=== PATIENT | male | born 1990 | race Caucasian/White ===

== ENCOUNTER 2023-02-20 15:50 | Emergency (ER) | payer MEDICAID, SELFPAY ==
[2023-02-20 15:56] VITALS: BP 134/85; PULSE 111; RESP 16; TEMP 37.4; O2SAT 100; BMI 20.6
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
[2023-02-20 17:41] VITALS: BP 126/100; PULSE 83; O2SAT 97
[2023-02-20 18:38] VITALS: BP 131/99; PULSE 99; RESP 18; O2SAT 95
[2023-02-20 20:12] VITALS: RESP 16
[2023-02-20] MEDS: morphine 4 mg/mL SDV 1 mL IVP (20:12)
== END 2023-02-20 20:50 | disposition left against medical advice (07) ==
PROVIDERS: Emergency Provider Emergency Medicine
DX: S32.445A Nondisplaced fracture of posterior column [ilioischial] of left acetabulum, initial encounter for closed fracture (principal); S00.81XA Abrasion of other part of head, initial encounter; Y35.813A Legal intervention involving manhandling, suspect injured, initial encounter
CPT/HCPCS: 70450; 70486; 73502; 73700; 96374; 99285; E0114; J2270

== ENCOUNTER 2023-05-15 13:58 | Inpatient (IN) | payer MEDICAID, SELFPAY ==
[2023-05-15 14:02] VITALS: BP 172/90; PULSE 116; RESP 16; TEMP 37; O2SAT 99; BMI 20.9
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
[2023-05-15] MEDS: OLANZapine 10 mg VIAL IM (14:49)
[2023-05-15] MEDS: water for injection-sterile 10 ML 2.1 ML (14:52)
[2023-05-15 15:41] LABS: Basophils % 0.4 %; Eosinophils % 0.3 %; Hematocrit 46.3 % (37-53); Lymphocytes # 2.2 10^3/uL (0.8-4.8); Lymphocytes % 23.5 %; Mean Corpuscular HGB Conc 33.9 g/dL (30-55); Mean Corpuscular Hemoglobin 30.2 pg (27-33); Mean Platelet Volume 10.5 fL (7.4-10.4); Monocytes # 0.8 10^3/uL (0.2-0.9); Monocytes % 8.9 %; Neutrophils # 6.14 10^3/uL (1.8-7.7); Neutrophils % 65.2 %; Nucleated Red Blood Cells % 0 %; Platelet Count 256 10^3/cmm (157-399); Red Cell Distribution Width 12.1 % (12.1-15.1); White Blood Count 9.43 10^3/uL (3.29-11.43)
[2023-05-15 16:07] LABS: Alanine Aminotransferase 22 U/L (0-41); Albumin Level 4.6 g/dL (3.5-5.2); Alkaline Phosphatase 93 U/L (40-130); Aspartate Amino Transferase 22 U/L (0-40); Blood Urea Nitrogen 16 mg/dL (6-20); Calcium 10.1 mg/dL (8.5-10.5); Carbon Dioxide 21 mmol/L (22-29); Chloride 100 mmol/L (98-107); Globulin 3.2 g/dL (1.3-4.6); Glomerular Filtration Rate 77.6 mL/min (90-130); Glucose 97 mg/dL (65-115); Osmolality Calculated 287 mOsm/kg (285-295); Sodium 138 mmol/L (136-145); Total Bilirubin 0.5 mg/dL (0.15-1.2); Total Protein 7.8 g/dL (6.6-8.7)
[2023-05-15 16:10] LABS: Acetaminophen < 5.0 ug/mL (10-30); Alcohol Level < 10 mg/dL (0-10); Salicylate < 0.3 mg/dL (3-10)
--- NOTE | 2023-05-15 16:50 | PC.NURSE ---
96 hr rights reviewed with patient with assistance of [facility] security program manager Navneet @[phone]. All education reviewed. No questions or verbalized at this time. Patient copy left @bedside.
--- NOTE | 2023-05-15 17:55 | PC.NURSE ---
When patient arrived on unit, patient followed ER staff into nurses station. This nurse lead patient out into giang. Patient then sat in wheelchair with eyes closed and head tilted back. It took multiple attempts to persuade patient to transfer from wheelchair to bench. VS were quickly obtained. VS were WNLs.Then patient was up quickly, taking large, unsteady steps. Patient went to the bathroom, then went to the barrels and climbed on top of a barrel before this nurse could stop him. This nurse helped him down. This nurse and TEAM PSYCHOLOGIST helped patient to room. Patient kept trying to enter the rooms of others during the walk. Patient had to be assisted by this nurse and TEAM PSYCHOLOGIST to switch out into green scrubs. When asked if he knew where he was patient stated, [facility] . This nurse informed patient that he is at the hospital in [place]. Patient eyes remained closed and he didn't respond. Staff removed two gauges, one from each ear. No areas that need to be addressed on skin. Patient was covered with a blanket and patient quickly went to sleep.
[2023-05-15 20:51] VITALS: RESP 16
--- NOTE | 2023-05-15 20:51 | PC.NURSE ---
Attempted to obtain patients vitals. Patient would not wake up to obtain. RR documented
[2023-05-15] MEDS: hyDROXYzine 25 mg Capsule 50 MG PO (21:52)
[2023-05-15 22:04] LABS: Amphetamines Screen Urine Positive (Negative); Barbiturates Screen Urine Negative (Negative); Benzodiazepines Screen Urine Negative (Negative); Cocaine Screen Urine Negative (Negative); Opiate Screen Urine Negative (Negative); PCP Screen Urine Negative (Negative); THC Screen Urine Negative (Negative)
[2023-05-15] MEDS: acetaminophen 325 mg Tablet 650 MG PO (23:22)
[2023-05-16 06:00] VITALS: BP 126/68; PULSE 115; RESP 20; TEMP 36.6; O2SAT 95
[2023-05-16] MEDS: hyDROXYzine 25 mg Capsule 50 MG PO (08:42)
[2023-05-16] MEDS: nicotine 2 mg Gum BUCCAL ×2 (08:43→11:46)
[2023-05-16] MEDS: OLANZapine 5 mg ODT PO (10:30)
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
[2023-05-16 14:00] VITALS: BP 121/69; PULSE 72; RESP 16; TEMP 36.6; O2SAT 95
[2023-05-16] MEDS: paliperidone ER 3 mg Tablet PO (20:33)
[2023-05-16] MEDS: carBAMazepine 200 mg Tablet PO (20:33)
[2023-05-16 20:38] VITALS: BP 111/73; PULSE 70; RESP 18; TEMP 37; O2SAT 97
[2023-05-17] MEDS: hyDROXYzine 25 mg Capsule 50 MG PO ×3 (07:17→20:50)
[2023-05-17] MEDS: nicotine 2 mg Gum BUCCAL (07:54)
--- NOTE | 2023-05-17 08:41 | P.NPUPN_ITS ---
Subjective NPU 2 Subjective: Patient presented today reporting that he is tolerating the Invega fine. He reports that he has been a little tired today but that is been okay. He denied any significant side effects. He reports that he has been talking to the social work team about the possibility of rehab but seem to be somewhat ambivalent. We discussed continuing the medication as it stands and looking to direct him in a way that is supportive of his recovery. Mental Status Exam 2 MSE Comments: This is an underweight/diminutive white male in hospital scrubs with limited grooming and eye contact.? No abnormal movements except for mild psychomotor retardation.? Cooperative with exam in mild distress.? Speech was slightly decreased rate and volume.? Mood described as okay but stressed and having panic attacks, affect congruent and odd.? Thought process organized.? Thought content: Patient denies suicidal or homicidal ideation, there were no delusions reported or noted, he endorsed auditory and visual hallucinations.? Attention and concentration were intact and memory appeared mostly reliable but none were formally tested.? He is alert and oriented x3.? Insight and judgment appear limited and impulse control is impaired. Vitals/I&O/Wt Last Vital Signs Temp 98.6 F 05/16/23 20:38 Pulse 70 05/16/23 20:38 Resp 18 05/16/23 20:38 BP 111/73 05/16/23 20:38 Pulse Ox 97 05/16/23 20:38 O2 Del Method Room Air 05/16/23 20:38 Data NPU 05/15/23 15:33 05/15/23 15:33 A&P Assessment and plan (1) Psychosis: Qualifiers: Psychosis type: unspecified psychosis type Qualified Code(s): F29 - Unspecified psychosis not due to a substance or known physiological condition (2) Involuntary commitment: (3) Substance abuse: (4) Methamphetamine use disorder, severe: Plan This is a 32-year-old white male with reported sleep deprivation, hallucinations, and anxiety. The hallucinations have been ongoing since the patient quit alcohol in 2019. The patient also reports a history of drug use, including alcohol, cigarettes, and occasional use of cocaine, methamphetamine, and opiates and has a family history of mental health issues and addiction with UDS positive for amphetamines. 1.? Continue current medications. Started Invega 3 mg 05/16/2023 and then 6 mg daily today. 2.? Continue every 15 minute checks for safety. 3.? Encourage individual, group and milieu therapies. 4. Encourage sober living treatment after discharge at the highest level of care to which he is willing to commit. Involuntary Hold Information 2 96 Hour Hold: 96 Hour Involuntary Admission: Yes 96 Hour Hold Ending Date: 05/19/23 96 Hour Hold Ending Time: 14:14 Attestations NPU 2 Medical Necessity Statement*: Inpatient hospitalization is medically necessary and the clinically appropriate intervention at this time. We will monitor medications and make changes as indicated. Likely length of stay 2-4 days. Coding Level of Care Code Acute Code for g Fwd Diagnoses Psychosis F29 Psychosis type: unspecified psychosis type Involuntary commitment Z04.6 Substance abuse F19.10 Methamphetamine use disorder, severe F15.20
[2023-05-17] MEDS: paliperidone ER 6 mg Tablet PO (08:43)
[2023-05-17 14:00] VITALS: BP 105/61; PULSE 82; RESP 12; O2SAT 96
[2023-05-17] MEDS: trazodone 50 mg Tablet PO (20:50)
[2023-05-17 21:11] VITALS: RESP 18
--- NOTE | 2023-05-17 21:12 | PC.NURSE ---
Attempted to obtain patients vitals. Patient was sleeping and would not comply, RR documented
[2023-05-18] MEDS: trazodone 50 mg Tablet PO ×2 (01:28→20:29)
[2023-05-18] MEDS: OLANZapine 5 mg ODT PO ×3 (02:28→17:42)
[2023-05-18 06:00] VITALS: BP 113/76; PULSE 93; RESP 18; TEMP 36.9; O2SAT 98
[2023-05-18] MEDS: hyDROXYzine 25 mg Capsule 50 MG PO ×2 (07:52→15:37)
[2023-05-18] MEDS: paliperidone ER 6 mg Tablet PO (07:52)
--- NOTE | 2023-05-18 08:46 | P.NPUPN_ITS ---
Subjective NPU 2 Subjective: Patient presented today continuing to spend a lot of time in his room but reporting that he had been struggling with sleep and we discussed it being consistent with withdrawal from stimulants/methamphetamine. He is working with the social work team for possible sober living options. He is reporting at this point that he is committed to some kind of rehab or active treatment. He denied any side effects to the medication. Mental Status Exam 2 MSE Comments: This is an underweight/diminutive white male in hospital scrubs with limited grooming and eye contact.? No abnormal movements except for mild psychomotor retardation.? Cooperative with exam in mild distress.? Speech was slightly decreased rate and volume.? Mood described as okay but stressed and having panic attacks, affect congruent and odd.? Thought process organized.? Thought content: Patient denies suicidal or homicidal ideation, there were no delusions reported or noted, he endorsed auditory and visual hallucinations.? Attention and concentration were intact and memory appeared mostly reliable but none were formally tested.? He is alert and oriented x3.? Insight and judgment appear limited and impulse control is impaired. Vitals/I&O/Wt Last Vital Signs Temp 98.4 F 05/18/23 06:00 Pulse 93 05/18/23 06:00 Resp 18 05/18/23 06:00 BP 113/76 05/18/23 06:00 Pulse Ox 98 05/18/23 06:00 O2 Del Method Room Air 05/18/23 06:00 Data NPU 05/15/23 15:33 05/15/23 15:33 A&P Assessment and plan (1) Psychosis: Qualifiers: Psychosis type: unspecified psychosis type Qualified Code(s): F29 - Unspecified psychosis not due to a substance or known physiological condition (2) Involuntary commitment: (3) Substance abuse: (4) Methamphetamine use disorder, severe: Plan This is a 32-year-old white male with reported sleep deprivation, hallucinations, and anxiety. The hallucinations have been ongoing since the patient quit alcohol in 2019. The patient also reports a history of drug use, including alcohol, cigarettes, and occasional use of cocaine, methamphetamine, and opiates and has a family history of mental health issues and addiction with UDS positive for amphetamines. 1.? Continue current medications. Started Invega 3 mg 05/16/2023 and then 6 mg daily thereafter. 2.? Continue every 15 minute checks for safety. 3.? Encourage individual, group and milieu therapies. 4. Encourage sober living treatment after discharge at the highest level of care to which he is willing to commit. Involuntary Hold Information 2 96 Hour Hold: 96 Hour Involuntary Admission: Yes 96 Hour Hold Ending Date: 05/19/23 96 Hour Hold Ending Time: 14:14 Attestations NPU 2 Medical Necessity Statement*: Inpatient hospitalization is medically necessary and the clinically appropriate intervention at this time. We will monitor medications and make changes as indicated. Likely length of stay 2-4 days. Coding Level of Care Code Acute Code for Chg Fwd Diagnoses Psychosis F29 Psychosis type: unspecified psychosis type Involuntary commitment Z04.6 Substance abuse F19.10 Methamphetamine use disorder, severe F15.20
[2023-05-18] MEDS: nicotine 2 mg Gum BUCCAL (10:19)
[2023-05-18 14:00] VITALS: BP 116/76; PULSE 100; RESP 20; TEMP 36.9; O2SAT 97
--- NOTE | 2023-05-18 17:44 | PC.NURSE ---
pt up at nurses station requesting medication for restless leg syndrome, when asked by this nurse if pt suffered from this syndrome at home pt stated only when I am not taking my medication. pt stated he has not been prescribed any of his medication since moving to [place] from [place] 6 months ago. This nurse asked what medication he was taking at home that he is no longer taking, pt stated suboxone. pt then stated when asked where he recieved his prescription from because it is not listed as a home medication in his chart. pt stated from friends and family where ever I can get the medication.
[2023-05-18 21:12] VITALS: BP 120/71
[2023-05-18] MEDS: cloNIDine 0.1 mg Tablet PO (21:12)
[2023-05-18 21:29] VITALS: BP 120/71; PULSE 109; RESP 20; TEMP 36.5; O2SAT 98
[2023-05-19] MEDS: OLANZapine 5 mg ODT PO ×2 (04:05→10:13)
[2023-05-19] MEDS: benztropine 1 mg Tablet PO (05:41)
[2023-05-19] MEDS: nicotine 2 mg Gum BUCCAL (05:43)
[2023-05-19 06:00] VITALS: BP 101/67; PULSE 93; RESP 16; TEMP 36.8; O2SAT 97
[2023-05-19] MEDS: paliperidone ER 6 mg Tablet PO (08:59)
--- NOTE | 2023-05-19 10:31 | P.NPUDS_ITS ---
Diagnoses at Discharge Discharge Diagnosis (1) Psychosis: Status: Acute Qualifiers: Psychosis type: unspecified psychosis type Qualified Code(s): F29 - Unspecified psychosis not due to a substance or known physiological condition (2) Involuntary commitment: Status: Acute (3) Substance abuse: Status: Acute (4) Methamphetamine use disorder, severe: Status: Acute Reason for Visit Reason for Visit: MHE, Meds Brief History: History of Present Illness Chema Yeung is a 32 year old male who presented to the emergency department with the following report: Chief Complaint: Psychiatric Symptoms Stated Complaint: MHE, Meds Time Seen by Provider: 05/15/23 14:05 Source: patient and family Mode of arrival: ambulatory Limitations: no limitations History of Present Illness: Patient is a 32-year-old male who presents to ED today along with his mother and sister reporting that he needs a refill on his risperidone. Patient tells me he takes his medication for schizophrenia. He does tell me he has been hearing voices and seeing things. Later mother and sister pulled me aside and tell me that patient has stated that people are going through his eyes and into his head and that they time travel. He wants to patent his invention on time travel because other's are already profitting from it. He keeps thinking that somebody is stabbing him in his eyes. He thinks that demons are in the house and is making mother/sister clean the rooms to try to get them out. Sister states that he feels Le Haresh (cleaning staff supervisor) is stabbing him. He later tells me that they text [id number]. Affidavit states that he was hearing people get shot at his residence and making the mother and sister go search the property. Patient tells me he is not suicidal or homicidal. MD complaint: other (psychosis/delusions) Onset (ago): day(s) Duration: constant History of same: Yes Relieving factors: medication Context: not taking psychiatric medications (ran out of his risperidone) Associated psychiatric symptoms: auditory hallucinations, visual hallucinations and delusions Associated symptoms: Reports auditory hallucinations, visual hallucinations and delusions; Deny homicidal ideation or suicidal ideation Treatments prior to arrival: none He was admitted to the neuropsychiatric unit for definitive treatment of those issues. CHIEF COMPLAINT Sleep deprivation, hallucinations, anxiety HISTORY OF THE PRESENT COMPLAINT The patient presented with sleep deprivation, which has been an ongoing issue since 2019. The patient reported experiencing hallucinations, which he believes started after he quit alcohol and experienced delirium tremens (DT's) around four to five years ago. The hallucinations are both auditory and visual and tend to occur three to four days after he stops drinking. The hallucinations are influenced by his immediate surroundings and can be intense, to the point where he sometimes cannot distinguish them from reality. The patient also reported experiencing anxiety, particularly worrying about life and financial matters. However, he denied experiencing paranoia or obsessive-compulsive disorder (OCD) symptoms. The patient has a history of substance use, including alcohol, cocaine, methamphetamine, and opiates, which he uses socially and not daily. He reported that he had been drinking prior to the current episode of sleep deprivation and hallucinations but had stopped. He also mentioned that he does not remember his actions when he drinks. In terms of previous treatments, the patient reported that antipsychotic medications, specifically Seroquel and Risperdal, have helped with his hallucinations in the past. He expressed willingness to try a new medication, Invega, which is similar to Risperdal, to help manage his symptoms. The patient also reported a traumatic event in his past, specifically the murder of his stepfather. He is currently homeless and has been for a couple of months. He has been to penitentiary four times, with the longest stay being one year. He described his mood as stressed and experiencing panic attacks but denied any current thoughts of self-harm or harm to others. MENTAL HEALTH HISTORY No previous psychiatric hospitalization, previous therapy in [place], history of medication use, hallucinations since quitting alcohol in 2019, history of sleep deprivation SOCIAL HISTORY Smokes a pack of cigarettes per week, consumes alcohol once or twice a week, occasional use of cocaine, methamphetamine, and opiates, family history of mental health issues and addiction on both sides, family history of suicide attempts and completion, born premature, lived with various family members during childhood, stepfather was murdered, homeless for a few months, been to penitentiary four times Hospital Course Hospital Course He slowly acclimated to the individual, group therapies provided. He presented with significant addiction issues and withdrawal from substances including methamphetamine. He was open to a trial of Invega which was titrated to 6 mg p.o. daily for psychosis. He was initially ambivalent but became increasingly more open to sober living treatment. He worked with social work team for outpatient resources discharge/aftercare plans including addiction treatment. He had significant improvement during the hospitalization and was able to contract for safety outside of the hospital prior to discharge. During the hospitalization, patient had routine laboratory studies which were within normal limits except for few outliers. Additionally there was a general medical e valuation which was also within normal limits and revealed no new acute processes. At the time of discharge, lethality was denied and psychosis was resolving. Mood and anxiety were well managed. Patient endorsed a plan to avoid all drugs of abuse and follow-up with the aftercare recommendations of the treatment team. Patient was evaluated and deemed to be absent credible lethality, and had ach ieved the maximum benefit from an inpatient hospitalization, so was discharged. Involuntary Hold Information 96 Hour Hold: 96 Hour Involuntary Admission: Yes 96 Hour Hold Ending Date: 05/19/23 96 Hour Hold Ending Time: 14:14 Mental Status Exam MSE Comments: This is an underweight/diminutive white male in hospital scrubs with limited grooming and eye contact.? No abnormal movements except for mild psychomotor retardation.? Cooperative with exam in mild distress.? Speech was slightly decreased rate and volume.? Mood described as better, affect congruent and odd.? Thought process organized.? Thought content: Patient denies suicidal or homicidal ideation, there were no delusions reported or noted, he endorsed auditory and visual hallucinations.? Attention and concentration were intact and memory appeared mostly reliable but none were formally tested.? He is alert and oriented x3.? Insight and judgment appear limited and impulse control is impa ired. Discharge Data Studies Completed and Pending: Laboratory Results WBC 9.43 10^3/uL (3.2 9-11.43) 05/15/23 15:33 RBC 5.20 10^6/uL (3.8 5-5.65) 05/15/23 15:33 Hgb 15.70 g/dL (11.27 -16.99) 05/15/23 15:33 Hct 46.3 % (37-53) 05/15/23 15:33 MCV 89.0 fl (82-101) 05/15/23 15:33 MCH 30.2 pg (27-33) 05/15/23 15:33 MCHC 33.9 g/dL (30-55) 05/15/23 15:33 RDW 12.1 % (12.1-15.1 ) 05/15/23 15:33 Plt Count 256 10^3/cmm (157 -399) 05/15/23 15: MPV 10.5 fL (7.4-10.4 ) H 05/15/23 15: Neut % (Auto) 65.2 % 05/15/23 15: Lymph % (Auto) 23.5 % 05/15/23 15: Stokes % (Auto) 8.9 % 05/15/23 15: Eos % (Auto) 0.3 % 05/15/23 15:33 Baso % (Auto) 0.4 % 05/15/23 15: Neut # (Auto) 6.14 10^3/uL (1.8 -7.7) 05/15/23 15: Lymph # (Auto) 2.2 10^3/uL (0.8- 4.8) 05/15/23 15: Stokes # (Auto) 0.8 10^3/uL (0.2- 0.9) 05/15/23 15: Eos # (Auto) 0.0 10^3/uL (0.0- 0.8) 05/15/23 15: Baso # (Auto) 0.0 10^3/uL (0.0- 0.1) 05/15/23 15: Nucleated RBC % (a uto) 0 % 05/15/23 15: Nucleated RBCs # 0.0 /100WBC 05/15/23 15: Sodium 138 mmol/L (136-1 45) 05/15/23 15: Potassium 4.0 mmol/L (3.5-5 .1) 05/15/23 15: Chloride 100 mmol/L (98-10 7) 05/15/23 15: Carbon Dioxide 21 mmol/L (22-29) L 05/15/23 15: Anion Gap 21.0 (5-19) H 05/15/23 15: BUN 16 mg/dL (6-20) 05/15/23 15: Creatinine 1.1 mg/dL (0.7-1. 2) 05/15/23 15:33 GFR Calculation 77.6 mL/min (90-1 30) L 05/15/23 15:33 Glucose 97 mg/dL (65-115) 05/15/23 15:33 Calculated Osmolal ity 287 mOsm/kg (285- 295) 05/15/23 15:33 Calcium 10.1 mg/dL (8.5-1 0.5) 05/15/23 15:33 Total Bilirubin 0.5 mg/dL (0.15-1 .2) 05/15/23 15:33 AST 22 U/L (0-40) 05/15/23 15:33 ALT 22 U/L (0-41) 05/15/23 15:33 Alkaline Phosphata se 93 U/L (40-130) 05/15/23 15:33 Total Protein 7.8 g/dL (6.6-8.7 ) 05/15/23 15: Albumin 4.6 g/dL (3.5-5.2 ) 05/15/23 15: Globulin 3.2 g/dL (1.3-4.6 ) 05/15/23 15:33 Salicylates < 0.3 mg/dL (3-10 ) L 05/15/23 15:33 Urine Opiates Scre en Negative ng/mL (N egative) 05/15/23 21:25 Acetaminophen < 5.0 ug/mL (10-3 0) L 05/15/23 15:33 Ur Barbiturates Sc reen Negative ng/mL (N egative) 05/15/23 21:25 Ur Phencyclidine S crn Negative ng/mL (N egative) 05/15/23 21:25 Ur Amphetamines Sc reen Positive ng/mL (N egative) H 05/15/23 21:25 U Benzodiazepines Scrn Negative ng/mL (N egative) 05/15/23 21:25 Urine Cocaine Scre en Negative ng/mL (N egative) 05/15/23 21:25 U Marijuana (THC) Screen Negative ng/mL (N egative) 05/15/23 21:25 Ethyl Alcohol < 10 mg/dL (0-10) 05/15/23 15:33 Vitals: Last Vital Signs Temp 98.3 F 05/19/23 06:00 Pulse 93 05/19/23 06:00 Resp 16 05/19/23 06:00 BP 101/67 05/19/23 06:00 Pulse Ox 97 05/19/23 06:00 O2 Del Method Room Air 05/19/23 06:00 Discharge Plan Discharge Patient Disposition: Home Condition: Stable Prescriptions: New clonidine HCl 0.1 mg Tablet 0.1 mg PO BEDTIME PRN (Reason: Restless Leg Syndrome) 30 Days Qty: 30 1RF trazodone 50 mg Tablet 50 mg PO BEDTIME PRN (Reason: Sleep) 30 Days Qty: 30 1RF hydroxyzine pamoate 25 mg Capsule 50 mg PO Q6H PRN (Reason: Anxiety) 30 Days Qty: 120 1RF paliperidone 6 mg Tablet Extended Release 24hr 6 mg PO DAILY 30 Days Qty: 30 1RF Continued ketorolac 10 mg tablet 10 mg PO Q4H PRN (Reason: Pain) Discharge Orders: Discharge Order (Routine); Ordered 05/19/23 Ordered By: Job Hutson [facility] [Other[facility] - 05/22/23 8:00 am [facility] [Other] - 06/02/23 8:00 am (Intake for services with Eloise Haley) [facility] [Other] - 06/21/23 3:40 pm (Psychiatric appointment with Dr. Mason) Discharge Diet: Regular Discharge Activity: Resume usual activity Patient Instructions: Clonidine (By mouth), Trazodone (By mouth), Hydroxyzine (By mouth), Paliperidone (By mouth), Methamphetamine Use Disorder (DC), Opioid Safety, Pain Management Discharge Attestations NPU Time Spent in Discharge Care*: less than 30 min Specific Discharge Activities: Specific discharge activities: educating patient, discussing with case liner/social workers/dc planners, documenting/other paperwork and evaluating patient/reviewing data Coding Level of Care Code Acute Code for Chg Fwd Diagnoses Psychosis F29 Psychosis type: unspecified psychosis type Involuntary commitment Z04.6 Substance abuse F19.10 Methamphetamine use disorder, severe F15.20
[2023-05-19 10:57] VITALS: BP 101/67; PULSE 93; RESP 16; TEMP 36.8; O2SAT 97
[2023-05-19] MEDS: hyDROXYzine 25 mg Capsule 50 MG PO (12:06)
== END 2023-05-19 12:37 | disposition home or self-care (01) | DRG 885 ==
LOC: ER 15:58 → NP 16:38
PROVIDERS: Admitting Provider Psychiatry & Neurology Psychiatry; Emergency Provider Physician Assistant; Visit Provider Psychiatry & Neurology Psychiatry
DX: F23 Brief psychotic disorder (principal); F15.20 Other stimulant dependence, uncomplicated; Z72.820 Sleep deprivation; F17.210 Nicotine dependence, cigarettes, uncomplicated; F41.9 Anxiety disorder, unspecified; F14.10 Cocaine abuse, uncomplicated; F11.10 Opioid abuse, uncomplicated; Z81.8 Family history of other mental and behavioral disorders; Z81.3 Family history of other psychoactive substance abuse and dependence; F10.21 Alcohol dependence, in remission
CPT/HCPCS: 36415; 80053; 80306; 80307; 85025; 96372; 97150; 97165; 99285; J3490